=== PATIENT | male | born 1945 | race Hispanic/Latino ===

== ENCOUNTER 2017-12-23 04:42 | Inpatient (IN) | payer MEDICARE, MEDICAID ==
[2017-12-23 05:16] LABS: INR-International Normal Ratio 1.1; PTT 27.6 SEC (22.9-36.1); Prothrombin Time 13.8 SEC (12.0-14.7)
[2017-12-23 05:19] LABS: #Lymphocytes 0.7 thou/uL (1.20-3.40); #Monocytes 0.6 thou/uL (0.11-0.59); #Neutrophils 12.3 thou/uL (1.40-6.50); %Basophils 0.2 % (0.0-1.0); %Eosinophils 0.2 % (0.0-10.0); %Lymphocytes 5.4 % (21.0-51.0); %Monocytes 4.3 % (0.0-10.0); %Neutrophils 89.9 % (42.0-75.0); Hemoglobin 15.6 g/dL (14.0-18.0); Mean Corpuscular Hemoglobin 29.7 pg (27.0-31.0); Mean Corpuscular Volume 89.9 fL (78.0-98.0); Mean Platelet Volume 9.1 fL (7.4-10.4); Platelet Count 292 thou/uL (130-400); RBC Distribution Width 11.9 % (11.5-14.5); Red Blood Cell (RBC) Count 5.25 mill/uL (4.70-6.10); White Blood Cell (WBC) Count 13.7 thou/uL (4.8-10.8)
[2017-12-23 05:26] LABS: ALT (SGPT) 19 U/L (8-55); AST (SGOT) 19 U/L (5-34); Albumin 4.5 g/dL (3.4-4.8); Alkaline Phosphatase 85 U/L (40-150); Anion Gap 19 mmol/L (10-20); BUN (Urea Nitrogen) 12 mg/dL (8.4-25.7); Bilirubin, Total 0.7 mg/dL (0.2-1.2); Calc. Creatinine Clearance 0 mL/min (70-130); Calcium 10.1 mg/dL (7.8-10.44); Carbon Dioxide 21 mmol/L (23-31); Chloride 96 mmol/L (98-107); Estimated GFR-MDRD 58; Globulin 3.8 g/dL (2.4-3.5); Glucose 361 mg/dL (83-110); Potassium 4.4 mmol/L (3.5-5.1); Protein, Total 8.3 g/dL (5.8-8.1); Sodium 132 mmol/L (136-145)
[2017-12-23 05:28] LABS: CKMB 1.7 ng/mL (0-6.6); Troponin I Less than 0.010 ng/mL (< 0.028)
[2017-12-23 05:32] LABS: Bilirubin Negative (Negative); Blood, Urine Small (Negative); Clarity CLEAR (Clear); Glucose, Urine (Dipstick) >=1000 mg/dL (Negative); Leukocyte Negative (Negative); Nitrite Negative (Negative); Protein, Urine (Dipstick) 100 mg/dL (Neg-Trace); Specific Gravity, Urine 1.037 (1.002-1.036); Urobilinogen 0.2 mg/dL (0.2-1.0); pH, Urine 5.5 (5.0-9.0)
[2017-12-23 05:34] LABS: Bacteria/HPF None Seen HPF (None Seen); Hyaline Casts/LPF 0-3 HYALINE CAST LPF (0-3 Hyaline); RBC/HPF 0-3 HPF (0-3); Squamous Epithelial None Seen HPF (0-3); WBC/HPF None Seen HPF (0-3)
[2017-12-23 05:44] LABS: Acetaminophen Less than 6.0 mcg/mL (10.0-30.0); Alcohol Less than 10 mg/dL (Less than 10); Salicylate Less than 8.0 mg/dL (15.0-30.0)
[2017-12-23 06:00] LABS: Amphetamine Not Detected (NotDetected); Barbiturates Screen Not Detected (NotDetected); Benzodiazepine Screen Not Detected (NotDetected); Cocaine Metabolite Screen Not Detected (NotDetected); Medtox Control Line Valid? VALID (VALID); Medtox Reader # READER 4; Methadone Not Detected (NotDetected); Methamphetamine Not Detected (NotDetected); Opiate Screen Not Detected (NotDetected); Oxycodone Screen Not Detected (NotDetected); Phencyclidine (PCP) Not Detected (NotDetected); THC/Cannabinoid Screen Not Detected (NotDetected); Tricyclic Screen Not Detected (NotDetected)
--- NOTE | 2017-12-23 07:37 | RAD ---
CHEST 1 VIEW: HISTORY: Dyspnea. Altered mental status. FINDINGS: No comparison. Cardiac silhouette is magnified and upper limits of normal in size. Pulmonary vascul ature also upper limits of normal. Mediastinum is midline with aortic calcification. NO lobar conso lidation or evidence of pneumothorax. IMPRESSION: 1. Borderline cardiomegaly and pulmonary vascular congestion. No florid edema. 2. Atherosclerosis. POS: [facility]
--- NOTE | 2017-12-23 08:21 | CT ---
PRELIMINARY REPORT/[facility]/EMERGENTY AFTER-HOURS PROCEDURE Addendum created by Evelio Winters MD on 12/23/2017 6:25 AM Central Time ([place] & [place]) THIS REPORT CONTAINS FINDINGS THAT MAY BE CRITICAL TO PATIENT CARE. The findings were verbally commun icated via telephone conference with JIM CHOW at 6:25 AM CDT on 12/23/2017. The findings were acknowledged and understood. Initial Report created on 12/23/2017 6:23 AM Central Time ([place] & [place]) CT Head Without Intravenous Contrast EXAM DATE/TIME: 12/23/2017 5:02 AM CLINICAL HISTORY: 72 years male; Injury or trauma; Fall; Initial encounter; Abrasion; Not specified; Patient HX: No pre vious exams; Er 3; M72 presented to ed by ems after pushing his medical alarm after a fall. Pt report s he had fallen 20 times because he was travelling to his living room to get his phone. 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 Ems reports pt does not remember how he fell o r what happened. Ems reports patient has been delirius since they arrived on scene. Ems reports pt HX of dm and l sided deficits with patient's l arm with a l sided facial droop. Pt denies ETOH or narcotics. Unknown last scene normal. ; Additional info: *pt uncooperatove for exam TECHNIQUE: Axial computed tomography images of the head/brain without intravenous contrast. COMPARISON: No relevant prior studies available. FINDINGS: Artifacts: Motion artifact. Brain: Nonhemorrhagic right parietal lobe infarction. Chronic periventricular white matter small vess el ischemic change. No acute intracranial hemorrhage. Ventricles: Unremarkable. No ventriculomegaly. Bones/joints: Unremarkable. No acute fracture. Soft tissues: Unremarkable. Sinuses: Unremarkable as visualized. No acute sinusitis. Mastoid air cells: Unremarkable as visualized. No mastoid effusion. IMPRESSION: Nonhemorrhagic right parietal lobe infarction. Thank you for allowing us to participate in the care of your patient. Dictated and Authenticated by: Evelio Winters MD 12/23/2017 6:23 AM Central Time ([place] & [place]) FINAL REPORT CT HEAD NONCONTRAST: DATE: 12/23/2017. TIME: Performed on an emergency basis at 0505 hours. HISTORY: Head injury. FINDINGS: No comparison. Agree with the preliminary report by Dr. Winters from [facility]. Encephaloma lacia at the right parietal lobe is consistent with an area of old infarct. No acute intracranial ab normalities or acute traumatic process are demonstrated. POS: [facility]
[2017-12-23 08:59] LABS: Troponin I Less than 0.010 ng/mL (< 0.028)
[2017-12-23 11:37] LABS: Troponin I Less than 0.010 ng/mL (< 0.028)
[2017-12-23] MEDS ORDERED: Dextrose 50% Abboject 50 ML SYRINGE SLOW IVP PRN (13:15)
[2017-12-23] MEDS ORDERED: HumaLOG 300 UNITS/3 ML VIAL SC PRN (13:15)
[2017-12-23] MEDS ORDERED: Dextrose 5% in Water 1,000 ML IV PRN (13:15)
[2017-12-23] MEDS ORDERED: Guaifenesin DM 100-10/5 ML UDCUP PO PRN (13:15)
[2017-12-23 14:39] LABS: Syphilis Antibody Nonreactive (Nonreactive); Syphilis Antibody Index 0.07 S/CO (<1.00 Non-Reactive)
[2017-12-23 14:56] VITALS: BMI 23.6
[2017-12-23] MEDS: Sodium Chloride 0.9% 1,000 ML IV SCH (16:04)
[2017-12-23] MEDS: Acetaminophen 325 MG TAB PO PRN ×2 (16:08→20:57)
[2017-12-23] MEDS: Benzonatate 100 MG CAP PO SCH ×2 (16:08→20:55)
[2017-12-23] MEDS: Ondansetron HCl/PF 4 MG/2 ML Vial IVP PRN (17:18)
[2017-12-23] MEDS: Cefepime 1 GM in Sodium Chloride 0.9% 100 ML IVPB SCH (17:18)
[2017-12-23] MEDS: Atorvastatin Calcium 40 MG TAB PO SCH (20:55)
[2017-12-23] MEDS: guaiFENesin ER 600 MG TAB PO SCH (20:56)
[2017-12-23] MEDS: Insulin Glargine 10 UNITS in Pre-Filled Syringe 1 EACH SC SCH (20:56)
--- NOTE | 2017-12-23 21:30 | HP ---
DATE OF ADMISSION: 12/23/2017 REASON FOR ADMISSION: Acute cerebrovascular accident, acute chronic obstructive pulmonary disease ex acerbation, suspected congestive heart failure exacerbation, new onset diabetes which is uncontrolled , dehydration, acute encephalopathy. HISTORY OF PRESENT ILLNESS: Please note, the patient is not a very good historian. He is a bit grog gy and responds minimally. He states he fell down 2 weeks back and has been feeling sick from then o n. He also mentions that he has had sore throat and wants something to calm his throat. The patient was apparently brought by EMS to ED after he pushed his medical alarm after he fell at home. He sta jennifer he has fallen nearly 20 times at home. He was noted to have left-sided deficits with facial droo p. The patient has had a CT scan done in the ER, which shows right parietal lobe infarct, which like ly is old. PAST MEDICAL AND SURGICAL HISTORY: History of left wrist surgery done. He has GERD. He denies any other medical problem as such. CURRENT MEDICATIONS: None. ALLERGIES: No known drug allergies. PERSONAL HISTORY: Quit smoking 8 months back prior to which he was smoking 2 packs per day. Does no t abuse alcohol or drugs. He lives alone and is retired. FAMILY HISTORY: Mother in her 80s. Father at the age of 75 years and has had history of d iabetes and heart attack. CODE STATUS: Full. Power of energy attorney is his son, Mr. Stanley. REVIEW OF SYSTEMS: The following complete review of systems was negative, unless otherwise mentioned in the HPI or below: Constitutional: Weight loss or gain, ability to conduct usual activities. Sk in: Rash, itching. Eyes: Double vision, pain. ENT/Mouth: Nose bleeding, neck stiffness, pain, te nderness. Cardiovascular: Palpitations, dyspnea on exertion, orthopnea. Respiratory: Shortness of breath, wheezing, cough, hemoptysis, fever or night sweats. Gastrointestinal: Poor appetite, abdom inal pain, heartburn, nausea, vomiting, constipation, or diarrhea. Genitourinary: Urgency, frequenc y, dysuria, nocturia. Musculoskeletal: Pain, swelling. Neurologic/Psychiatric: Anxiety, depressio n. Allergy/Immunologic: Skin rash, bleeding tendency. PHYSICAL EXAMINATION: VITAL SIGNS: Blood pressure 146/74, pulse 70 per minute, respiratory rate 18 per minute, temperature 99 degrees Fahrenheit, saturating 93% on 2 liters nasal cannula. NECK: Supple. No elevated JVD. HEENT: Extraocular muscles intact. Pupils reacting to light. Oral cavity, mucous membranes are dry . No exudates. There is congestion in the posterior pharynx. No obvious exudates seen. CARDIOVASCULAR: S1, S2 heard. Regular rhythm. RESPIRATORY: Air entry 1+ bilateral. Scattered rhonchi plus bilateral. Wheezes plus bilaterally. ABDOMEN: Soft. Bowel sounds heard. No tenderness, rigidity or guarding. EXTREMITIES: No peripheral edema or calf tenderness. VASCULAR SYSTEM: Peripheral pulses 1+ bilateral. No ischemic ulcerations or gangrene. CENTRAL NERVOUS SYSTEM: Cranial nerves are grossly intact. The patient has very few teeth left. Mo tor system, strength is 3-4/5 in left upper and lower extremities when compared to right side. Refle xes are 2+ bilateral. Babinski is downgoing. Cerebellar signs cannot be tested as the patient is no t very cooperative. Gait was not tested. PSYCHIATRIC: No obvious hallucinations or delusions. LABORATORY AND X-RAY FINDINGS: White count of 13, H and H 15 and 47, platelet count 292,000 with 89% neutrophils, MCV is 89. PT, INR and PTT within normal limits. Serum bicarbonate 21, BUN 12, creati nine 1.2, serum glucose 361. Hemoglobin A1c 12. Troponin x3 is negative. CK-MB 1.7. Albumin is 4. 5. UA shows more than 1000 mg per deciliter of glucose, has 80 mEq of ketones. Urine drug screen an d serum drug screens are negative. Chest x-ray done shows pulmonary vascular congestion, underlying infiltrate cannot be excluded. CT brain shows nonhemorrhagic CVA in the right parietal area. There is no acute traumatic process or acute intracranial abnormalities noted. CLINICAL IMPRESSION AND PLAN: The patient will be admitted to stroke unit for left hemiparesis with likely acute cerebrovascular accident. I did discuss with his son, Mr. Stanley on the phone and he men tions that his father was not weak on any side, but he has not seen him in almost 4-5 months now. We will obtain MRI without contrast. He will be on aspirin, Lipitor for the same. The patient also ap pears to have acute chronic obstructive pulmonary disease exacerbation with underlying pneumonia susp ected and a white count of 13 with left shift. He also has moderate dehydration. We will place him on gentle IV hydration. Echo with 2D Doppler will be obtained to rule out congestive heart failure w ith elevated BNP. He will be on cefepime, Levaquin, IV steroids and nebulizers. He will be placed o n Lantus 10 units subcu twice daily for now and we will slowly titrate oral medications once he is mo re awake. TSH, throat culture, blood and urine cultures and lipid profile will be obtained. Stroke evidence based protocol will be followed with Speech, OT and Neurology consultations as well.
--- NOTE | 2017-12-23 21:45 | CON ---
DATE OF CONSULTATION: 12/23/2017 CHIEF COMPLAINT: Acute stroke. HISTORY OF PRESENT ILLNESS: The patient reports he was last normal on . He keeps falling as leep during my visit, but he reports he was doing okay on , but since Monday, he has bilatera l leg weakness. He felt wobbly. He could not walk. It took him a while and he finally walk to his phone. He was searching for his phone and he fallen at least 20 times and called 911 and came to the hospital. He does not remember many of the events. EMS reports the patient was found to be delirio us and has history of diabetes and he had left-sided deficits. We do not know exactly when he was no rmal prior to the EMS receiving his call. He takes baby aspirin on a daily basis. PAST MEDICAL HISTORY: Hypertension, diabetes, hypercholesterolemia. PAST SURGICAL HISTORY: Right wrist surgery. SOCIAL HISTORY: Does not drink alcohol, no use of any drugs. Used to smoke in the past. ALLERGIES: No known drug allergies. CURRENT MEDICATIONS: Other than aspirin not known. REVIEW OF SYSTEMS: Unreliable, patient does not wake up enough to give a reliable history even. LABORATORY DATA: White count 13.7, platelets 292, hemoglobin 15.6, hematocrit 47.2. Chemistry: Sod ium 132, potassium 4.4, bicarbonate is 21, BUN is 12, creatinine 1.2, glucose 361. TSH 0.30, protein 8.3, globulin 3.8 and toxicology screen is negative for any cannabis or any other chemicals. CT of the head was done and the patient does have encephalomalacia of the right parietal lobe consistent wi th an area of the old infarct, no acute infarct was ordered and was not found. PHYSICAL EXAMINATION: VITAL SIGNS: Temperature 99.4, respiratory rate 16, pulse 92, O2 sats 94, blood pressure 151/68. GENERAL APPEARANCE: Well-built, well-nourished man. CHEST: Clear vesicular breathing. CARDIOVASCULAR: S1, S2 heard, no murmurs. ABDOMEN: Soft, nontender, no organomegaly noted. NEUROLOGICAL: Higher intellectual functions. He is quite sleepy and wakes up intermittently, can fo llow simple commands. Cranial nerves: Normal extraocular movements. Pupils are reactive to light b ilaterally. Tongue midline. Mild left facial asymmetry noted. Motor: Bulk normal, tone normal, st rength 5/5 on the right side and left upper and lower extremities. Left upper extremity 4+/5, left l ower 4/5 and he tends to cross his legs when we are doing muscle testing, generally seems to be intac t and I tried to test muscle groups including iliopsoas, hamstrings, quadriceps, ankle dorsiflexion, plantar flexion, deltoid, biceps, triceps, wrist extension and flexion, finger extension and flexion. He falls asleep intermittently. Deep tendon reflexes absent. Sensory difficult to assess. Cerebe llar also difficult to assess due to his alertness level. IMPRESSION: Patient is a 72-year-old man who is diabetic and hypertensive, has multiple medical prob lems. He has come in with left-sided weakness and he does have a right parietal stroke which is rath er old. With encephalomalacia he might have had preexisting left-sided weakness, which has worsened. It is difficult to tell if this is an acute event and it is unclear when he was last normal and he is not a TPA candidate due to his current medical history and unclear etiology of his weakness. RECOMMENDATIONS: I would suggest MRI of the brain to understand whether he had any acute stroke. Ca rotid Dopplers and a hemoglobin A1c and B12, folate and as well and echocardiogram for stroke workup. Please monitor his blood glucose levels as well as blood pressure to make sure it is appropriately treated and I will check his MRI as well and I will follow the patient again with you. Please call m e if there is any sudden change in his neurological status.
[2017-12-24] MEDS: Sodium Chloride 0.9% 1,000 ML IV SCH ×2 (03:51→18:05)
[2017-12-24] MEDS: Cefepime 1 GM in Sodium Chloride 0.9% 100 ML IVPB SCH ×2 (03:52→17:58)
[2017-12-24] MEDS: Ondansetron HCl/PF 4 MG/2 ML Vial IVP PRN ×2 (03:52→16:05)
[2017-12-24 04:55] LABS: #Lymphocytes 0.9 thou/uL (1.20-3.40); #Monocytes 0.2 thou/uL (0.11-0.59); #Neutrophils 11.3 thou/uL (1.40-6.50); %Basophils 0.3 % (0.0-1.0); %Eosinophils 0.2 % (0.0-10.0); %Lymphocytes 7.5 % (21.0-51.0); %Monocytes 1.4 % (0.0-10.0); %Neutrophils 90.7 % (42.0-75.0); Hemoglobin 13.9 g/dL (14.0-18.0); Mean Corpuscular HGB CONC 33.4 g/dL (32.0-36.0); Mean Corpuscular Hemoglobin 30.2 pg (27.0-31.0); Mean Corpuscular Volume 90.4 fL (78.0-98.0); Mean Platelet Volume 8.6 fL (7.4-10.4); Platelet Count 258 thou/uL (130-400); RBC Distribution Width 11.7 % (11.5-14.5); White Blood Cell (WBC) Count 12.4 thou/uL (4.8-10.8)
[2017-12-24 05:08] LABS: Anion Gap 16 mmol/L (10-20); BUN (Urea Nitrogen) 19 mg/dL (8.4-25.7); Calc. Creatinine Clearance 61 mL/min (70-130); Calcium 8.7 mg/dL (7.8-10.44); Carbon Dioxide 19 mmol/L (23-31); Cardiac Risk 4.3 (Less than 4.5); Chloride 100 mmol/L (98-107); Cholesterol 124 mg/dl (< 200 Desired); Estimated GFR-MDRD 67; Glucose 281 mg/dL (83-110); HDL Cholesterol 29 mg/dL (>60 Neg Risk); LDL Cholesterol, Calculated 79 mg/dL; Potassium 4.2 mmol/L (3.5-5.1); Sodium 131 mmol/L (136-145); Triglycerides 80 mg/dL (Less than 150)
[2017-12-24] MEDS: HumaLOG 300 UNITS/3 ML VIAL SC PRN ×3 (06:25→17:59)
[2017-12-24] MEDS: guaiFENesin ER 600 MG TAB PO SCH ×2 (08:42→21:00)
[2017-12-24] MEDS: Aspirin 325 mg Enteric Coated Tablet PO SCH (08:42)
[2017-12-24] MEDS: Insulin Glargine 10 UNITS in Pre-Filled Syringe 1 EACH SC SCH ×2 (08:42→21:00)
[2017-12-24] MEDS: Benzonatate 100 MG CAP PO SCH ×3 (08:42→20:59)
[2017-12-24] MEDS: Enoxaparin Sodium 40 MG/0.4 ML SYRINGE SC SCH (08:42)
--- NOTE | 2017-12-24 10:26 | PDOC.PN ---
- Subjective Encounter Start Date: 12/24/17 Encounter Start Time: 09:15 Subjective: more awake, is sitting in chair -: responds well to verbal questions -: no sob - Objective Resuscitation Status: Resuscitation Status FULL:Full Resuscitation MAR Reviewed: Yes Vital Signs & Weight: Vital Signs (12 hours) Temp Pulse Resp BP Pulse Ox 12/24/17 08:00 99.3 F 96 18 121/56 L 94 L 12/24/17 06:53 85 20 99 12/24/17 04:00 98.4 F 85 18 131/83 93 L 12/24/17 00:00 97.8 F 92 18 183/81 H 98 12/23/17 23:17 94 L Weight Weight 155 lb 5 oz I&O: 12/23/17 12/24/17 12/25/17 06:59 06:59 06:59 Intake Total 1700 Balance 1700 Result Diagrams: 12/24/17 04:28 12/24/17 04:28 Additional Labs: Accuchecks 12/24/17 12/23/17 06:26 20:48 POC Glucose 265 H 293 H Phys Exam - Physical Examination HEENT: PERRLA, moist MMs Neck: no JVD, supple Respiratory: no wheezing, no rales rhonchi++ Cardiovascular: RRR, no significant murmur Gastrointestinal: soft, non-tender, positive bowel sounds Musculoskeletal: no edema, pulses present Neurological: moves all 4 limbs left hemiparesis strength 4/5 Psychiatric: normal affect, A&O x 3 Dx/Plan (1) Acute CVA (cerebrovascular accident) Code(s): I63.9 - CEREBRAL INFARCTION, UNSPECIFIED Status: Acute Comment: with left hemiparesis (2) COPD exacerbation Code(s): J44.1 - CHRONIC OBSTRUCTIVE PULMONARY DISEASE W (ACUTE) EXACERBATION Status: Acute (3) Acute exacerbation of CHF (congestive heart failure) Code(s): I50.9 - HEART FAILURE, UNSPECIFIED Status: Acute Qualifiers: Heart failure type: unspecified Qualified Code(s): I50.9 - Heart failure, unspecified (4) DM type 2 (diabetes mellitus, type 2) Status: Acute Qualifiers: Diabetes mellitus nursing home insulin use: without senior category manager use Diabetes mellitus complication status: with unspecified complications Qualified Code(s) : E11.8 - Type 2 diabetes mellitus with unspecified complications (5) Sepsis Code(s): A41.9 - SEPSIS, UNSPECIFIED ORGANISM Status: Acute Qualifiers: Sepsis type: sepsis due to unspecified organism Qualified Code(s): A41.9 - Sepsis, unspecified organism (6) Physical deconditioning Code(s): R53.81 - OTHER MALAISE Status: Acute - Plan MRI, echo is pending -: on levaquin, cefepime, steroids and neb -: PT/OT to mobilize as tolerated -: new onset dm, is on lantus, will add oral meds when w/u is complete -: hemostable * . Review of Systems - Medications/Allergies Allergies/Adverse Reactions: Allergies Allergy/AdvReac Type Severity Reaction Status Date / Time No Known Allergies Allergy Unverified 12/23/17 15:06 Medications: Current Medications Acetaminophen (Tylenol) 650 mg PO Q4H PRN PRN Reason: Headache/Fever/Mild Pain (1-3) Last Admin: 12/23/17 20:57 Dose: 650 mg Albuterol/Ipratropium (Duoneb) 3 ml NEB [id number] [facility] Last Admin: 12/24/17 06:53 Dose: 3 ml Aspirin (Ecotrin) 325 mg PO DAILY [facility] Last Admin: 12/24/17 08:42 Dose: 325 mg Atorvastatin Calcium (Lipitor) 40 mg PO HS [facility] Last Admin: 12/23/17 20:55 Dose: 40 mg Benzonatate (Tessalon) 100 mg PO TID [facility] Last Admin: 12/24/17 08:42 Dose: 100 mg Dextrose/Water (Dextrose 50%) 25 gm SLOW IVP PRN PRN PRN Reason: Hypoglycemia Enoxaparin Sodium (Lovenox) 40 mg SC 0900 [facility] Last Admin: 12/24/17 08:42 Dose: 40 mg Glucagon (Glucagon) 1 mg IM PRN PRN PRN Reason: Hypoglycemia Guaifenesin (Mucinex) 600 mg PO Q12HR [facility] Last Admin: 12/24/17 08:42 Dose: 600 mg Guaifenesin/Dextromethorphan (Robitussin Dm) 15 ml PO Q4H PRN PRN Reason: Cough Cefepime HCl 1 gm/ Sodium (Chloride) 100 mls @ 200 mls/hr IVPB 0400,1600 [facility] Last Admin: 12/24/17 03:52 Dose: 100 mls Dextrose/Water (D5w) 1,000 mls @ 0 mls/hr IV .Q0M PRN PRN Reason: Hypoglycemia Insulin Glargine 10 units/ (Miscellaneous Medication) 0.1 mls @ 0 mls/hr SC BID [facility] Last Admin: 12/24/17 08:42 Dose: 0.1 mls Sodium Chloride (Normal Saline 0.9%) 1,000 mls @ 100 mls/hr IV .Q10H [facility] Stop: 12/24/17 19:14 Last Admin: 12/24/17 03:51 Dose: 1,000 mls Levofloxacin 500 mg/ Device 100 mls @ 100 mls/hr IVPB Q24HR [facility] Last Admin: 12/23/17 16:09 Dose: 100 mls Insulin Human Lispro (Humalog) 0 units SC .MODERATE SLIDING SC PRN PRN Reason: Moderate Correctional Scale Last Admin: 12/24/17 06:25 Dose: 6 unit Insulin Human Lispro (Humalog) 0 units SC .BEDTIME SLIDING SC PRN PRN Reason: Bedtime Correctional Scale Last Admin: 12/23/17 23:00 Dose: 3 unit Ondansetron HCl (Zofran) 4 mg IVP Q6H PRN PRN Reason: Nausea/Vomiting Last Admin: 12/24/17 03:52 Dose: 4 mg Prednisone (Prednisone) 10 mg PO QAM-WM [facility] Sodium Chloride (Flush - Normal Saline) 10 ml IVF PRN PRN PRN Reason: Saline Flush
--- NOTE | 2017-12-24 11:32 | MRI ---
MRI OF BRAIN WITH AND IWHTOUT GADOLINIUM CONTRAST: HISTORY: CVA. COMPARISON: CT exam from 12/23/2017. FINDINGS: A gyriform multifocal area of restricted diffusion involves the right posterior frontal and parietal context and area of abnormality on recent CT scan. Small linear foci of increased T1 signal near the champion-white junction in the area of greatest abnormality shows blooming artifact on the gradient echo images and is consistent with a small amount of blood product. No abnormal areas of contrast enhanc ement. There are multiple additional smaller foci of restricted diffusion scattered throughout the periphery of the right frontal, parietal, temporal, and occipital lobes. No significant abnormalities on the left. Chronic ischemic small-vessel disease throughout the periventricular white matter. IMPRESSION: In addition to the larger parietal area of acute infarct, there are numerous tiny foci of acute vascu lar insult scattered throughout the right cerebral hemisphere with the appearance of a recent showeri ng phenomenon involving all 3 major branches of the right cerebral arteries. POS: [facility]
[2017-12-24] MEDS: Acetaminophen 325 MG TAB PO PRN (11:53)
--- NOTE | 2017-12-24 13:05 | PRG ---
DATE OF SERVICE: 12/24/2017 CHIEF COMPLAINT: Acute stroke. INTERVAL HISTORY: The patient has been more awake since yesterday and is sitting up in bed and eatin g lunch at this time. He does not report any new symptoms. He is going through testing at this poin t to determine the cause for his ischemic event. LABORATORY RESULTS: White count 12.4, hemoglobin 13.9, hematocrit 41.5, platelet count 258. Candy Counter Clerk ry: Sodium 131, potassium 4.2, chloride 100, bicarbonate 19, BUN 19, creatinine 1.08, glucose 281 an d his MRI report shows in addition to the large parietal area of acute infarct in the right posterior frontal and parietal area. There are numerous tiny foci of acute vascular insult scattered througho ut the right cerebral hemisphere with the appearance of a recent showering phenomena involving all 3 major branches of the right cerebral arteries. CLINICAL EXAMINATION: VITAL SIGNS: Blood pressure is 148/71, temperature 98.7, pulse is 88, respiratory rate 18. GENERAL: Thin built, well-nourished man. CHEST: Clear. NEUROLOGIC: Higher intellectual functions. Oriented to time, place and person and cranial nerves, l eft facial asymmetry. Tongue midline. Motor examination: Bulk normal, tone normal. He has mild we akness in the left upper extremity at 4+/5, left lower extremity weakness is 4/5, right side is guerrero l. IMPRESSION: The patient is a 72-year-old man with risk factors of hypertension, diabetes, hyperchole sterolemia, and he was last normal on and did not come to the hospital until Monday at [facility] time he was found to have had acute stroke within the right frontoparietal area with left-sided we akness. His examination shows some improvement in the left upper extremity weakness and left lower e xtremity remains weak and he is having some difficulties processing information. His MRI brain shows multiple infarcts in predominantly the right parietal infarct; however, based on the MRI findings pruitt spicion is high for carotid occlusion or major cardiac event. RECOMMENDATIONS: Continue aspirin for now. I will request a CT angiogram of the head and neck and w e are also waiting on echocardiogram. Please call Neurology if you have any further questions about the CTA report. I will not be here tomorrow.
[2017-12-24] MEDS ORDERED: ISOVUE-370 76%-LOCM 1 ML ONE (13:39)
--- NOTE | 2017-12-24 14:13 | CT ---
CT ARTERIOGRAM NECK WITH IV CONTRAST AND 3D MIP IMAGING CT ARTERIOGRAM HEAD WITH IV CONTRAST AND 3D MIP IMAGING CT BRAIN WITH AND WITHOUT IV CONTRAST: HISTORY: CVA. Vascular disease. COMPARISON: 12/23/2017. FINDINGS: Developing cytotoxic edema associated with a right posterior frontal/parietal infarct is again demons trated. No acute intracranial hemorrhage or infarcts are apparent on the CT. No abnormal areas of e nhancement of the brain after IV contrast administration. Normal branching of the great vessels at the aortic arch with scattered arterial calcification. Good flow into each internal carotid and vertebral system. Emphysematous changes of the lung apices are apparent. There is prominent calcification and noncalcified plaque at the right carotid bifurcation with foal s tenosis up to greater than 90% over a length of 1.5 cm within the proximal ICA. Good flow throughout the remainder of the ICA on the right. Projecting superiorly and anteriorly from the right internal carotid terminus is a peripherally calcified aneurysm measuring up to 1.4 cm length x 1.1 cm width. On the left, prominent plaque and calcification at the carotid bifurcation are present with a focal a yoan of stenosis estimated at 70%. Good flow into the remainder of the internal carotid artery. [place] is intact. Good flow into each middle cerebral, anterior cerebral, and posterior ce rebral system. IMPRESSION: 1. Very high-grade stenosis right internal carotid artery, greater than 99%. Moderate to high-grade stenosis of the left internal carotid artery estimated at 70%. 2. 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 POS: [facility]
[2017-12-24 15:52] LABS: ANA Symphony (Qualitative) Negative (Negative); dsDNA IgG Antibody Less than 0.5 IU/mL (<10 Negative)
[2017-12-24] MEDS: Atorvastatin Calcium 40 MG TAB PO SCH (21:00)
[2017-12-25] MEDS: Cefepime 1 GM in Sodium Chloride 0.9% 100 ML IVPB SCH (03:34)
[2017-12-25 05:23] LABS: #Lymphocytes 1.9 thou/uL (1.20-3.40); #Monocytes 1.3 thou/uL (0.11-0.59); #Neutrophils 13.6 thou/uL (1.40-6.50); %Basophils 0.1 % (0.0-1.0); %Eosinophils 0.2 % (0.0-10.0); %Lymphocytes 11.4 % (21.0-51.0); %Monocytes 7.5 % (0.0-10.0); %Neutrophils 80.8 % (42.0-75.0); Mean Corpuscular HGB CONC 33.9 g/dL (32.0-36.0); Mean Corpuscular Hemoglobin 30.7 pg (27.0-31.0); Mean Corpuscular Volume 90.7 fL (78.0-98.0); Mean Platelet Volume 9.1 fL (7.4-10.4); Platelet Count 273 thou/uL (130-400); RBC Distribution Width 11.9 % (11.5-14.5); Red Blood Cell (RBC) Count 4.55 mill/uL (4.70-6.10); White Blood Cell (WBC) Count 16.8 thou/uL (4.8-10.8)
[2017-12-25 05:34] LABS: Anion Gap 14 mmol/L (10-20); BUN (Urea Nitrogen) 14 mg/dL (8.4-25.7); Calc. Creatinine Clearance 85 mL/min (70-130); Calcium 8.5 mg/dL (7.8-10.44); Carbon Dioxide 16 mmol/L (23-31); Chloride 103 mmol/L (98-107); Estimated GFR-MDRD Greater than 90; Glucose 152 mg/dL (83-110); Sodium 129 mmol/L (136-145)
[2017-12-25 05:52] LABS: Thyroid Stimulating Hormone 0.7545 uIU/mL (0.35-4.94)
[2017-12-25] MEDS: Enoxaparin Sodium 40 MG/0.4 ML SYRINGE SC SCH (08:49)
[2017-12-25] MEDS: predniSONE 5 MG TAB PO SCH (08:55)
[2017-12-25] MEDS: Insulin Glargine 10 UNITS in Pre-Filled Syringe 1 EACH SC SCH ×2 (08:55→22:02)
[2017-12-25] MEDS: guaiFENesin ER 600 MG TAB PO SCH ×2 (08:55→22:01)
[2017-12-25] MEDS: Aspirin 325 mg Enteric Coated Tablet PO SCH (08:55)
[2017-12-25] MEDS: Benzonatate 100 MG CAP PO SCH ×3 (08:55→22:01)
--- NOTE | 2017-12-25 11:42 | PDOC.PN ---
- Subjective Encounter Start Date: 12/25/17 Encounter Start Time: 10:15 Subjective: awake and oriented well -: still has left sided weakness, no trouble swallowing -: breathing better now, has back pain/lower rib cage area - Objective Resuscitation Status: Resuscitation Status FULL:Full Resuscitation MAR Reviewed: Yes Vital Signs & Weight: Vital Signs (12 hours) Temp Pulse Resp BP Pulse Ox 12/25/17 08:55 94 L 12/25/17 07:48 98.5 F 98 20 141/66 H 94 L 12/25/17 06:42 86 12 12/25/17 04:00 98 F 83 14 141/80 H 95 12/25/17 00:00 97.9 F 86 16 137/68 96 12/24/17 23:57 94 L Weight Weight 155 lb 5 oz I&O: 12/24/17 12/25/17 12/26/17 06:59 06:59 06:59 Intake Total 3206 569 8727 Output Total 460 Balance 1700 540 660 Result Diagrams: 12/25/17 04:17 12/25/17 04:17 Additional Labs: Accuchecks 12/25/17 12/25/17 12/24/17 10:46 06:45 20:15 POC Glucose 201 H 163 H 213 H 12/24/17 12/24/17 16:58 11:38 POC Glucose 388 H 282 H Phys Exam - Physical Examination HEENT: PERRLA, moist MMs Neck: no JVD, supple Respiratory: no wheezing rhonchi+ Cardiovascular: RRR, no significant murmur Gastrointestinal: soft, non-tender, positive bowel sounds Musculoskeletal: no edema, pulses present Neurological: moves all 4 limbs left extre strength is 4/5 Psychiatric: normal affect, A&O x 3 Dx/Plan (1) Acute CVA (cerebrovascular accident) Code(s): I63.9 - CEREBRAL INFARCTION, UNSPECIFIED Status: Acute Comment: with left hemiparesis, embolic cva in right cerebral hemisphere (2) right carotid stenosis Status: Acute (3) COPD exacerbation Code(s): J44.1 - CHRONIC OBSTRUCTIVE PULMONARY DISEASE W (ACUTE) EXACERBATION Status: Acute Comment: resolving (4) Acute exacerbation of CHF (congestive heart failure) Code(s): I50.9 - HEART FAILURE, UNSPECIFIED Status: Acute Qualifiers: Heart failure type: diastolic Qualified Code(s): I50.33 - Acute on chronic diastolic (congestive) heart failure (5) DM type 2 (diabetes mellitus, type 2) Status: Acute Qualifiers: Diabetes mellitus termite control servicer insulin use: without termite control servicer use Diabetes mellitus complication status: with unspecified complications Qualified Code(s) : E11.8 - Type 2 diabetes mellitus with unspecified complications Comment: new onset (6) Sepsis Code(s): A41.9 - SEPSIS, UNSPECIFIED ORGANISM Status: Acute Qualifiers: Sepsis type: sepsis due to unspecified organism Qualified Code(s): A41.9 - Sepsis, unspecified organism (7) Physical deconditioning Code(s): R53.81 - OTHER MALAISE Status: Acute - Plan will request CTS opinion for right carotid stenosis and left hemiparesis -: embolic cva, in sinus rhythm, likely from carotid plaque -: is on asp, lipitor, will add plavix after cts opinion -: omnicef, steroids, nebs, PT/OT to mobilize as tolerated -: add glipizide to current lantus, may add metformin in am and dc lantus * . Review of Systems - Medications/Allergies Allergies/Adverse Reactions: Allergies Allergy/AdvReac Type Severity Reaction Status Date / Time No Known Allergies Allergy Unverified 12/23/17 15:06 Medications: Current Medications Acetaminophen (Tylenol) 650 mg PO Q4H PRN PRN Reason: Headache/Fever/Mild Pain (1-3) Last Admin: 12/24/17 11:53 Dose: 650 mg Albuterol/Ipratropium (Duoneb) 3 ml NEB [id number] [facility] Last Admin: 12/25/17 06:42 Dose: 3 ml Aspirin (Ecotrin) 325 mg PO DAILY [facility] Last Admin: 12/25/17 08:55 Dose: 325 mg Atorvastatin Calcium (Lipitor) 40 mg PO HS [facility] Last Admin: 12/24/17 21:00 Dose: 40 mg Benzonatate (Tessalon) 100 mg PO TID [facility] Last Admin: 12/25/17 08:55 Dose: 100 mg Dextrose/Water (Dextrose 50%) 25 gm SLOW IVP PRN PRN PRN Reason: Hypoglycemia Enoxaparin Sodium (Lovenox) 40 mg SC 0900 [facility] Last Admin: 12/25/17 08:49 Dose: 40 mg Glucagon (Glucagon) 1 mg IM PRN PRN PRN Reason: Hypoglycemia Guaifenesin (Mucinex) 600 mg PO Q12HR [facility] Last Admin: 12/25/17 08:55 Dose: 600 mg Guaifenesin/Dextromethorphan (Robitussin Dm) 15 ml PO Q4H PRN PRN Reason: Cough Cefepime HCl 1 gm/ Sodium (Chloride) 100 mls @ 200 mls/hr IVPB 0400,1600 [facility] Last Admin: 12/25/17 03:34 Dose: 100 mls Dextrose/Water (D5w) 1,000 mls @ 0 mls/hr IV .Q0M PRN PRN Reason: Hypoglycemia Insulin Glargine 10 units/ (Miscellaneous Medication) 0.1 mls @ 0 mls/hr SC BID [facility] Last Admin: 12/25/17 08:55 Dose: 0.1 mls Levofloxacin 500 mg/ Device 100 mls @ 100 mls/hr IVPB Q24HR [facility] Last Admin: 12/24/17 15:24 Dose: 100 mls Insulin Human Lispro (Humalog) 0 units SC .MODERATE SLIDING SC PRN PRN Reason: Moderate Correctional Scale Last Admin: 12/24/17 17:59 Dose: 10 unit Insulin Human Lispro (Humalog) 0 units SC .BEDTIME SLIDING SC PRN PRN Reason: Bedtime Correctional Scale Last Admin: 12/23/17 23:00 Dose: 3 unit Ondansetron HCl (Zofran) 4 mg IVP Q6H PRN PRN Reason: Nausea/Vomiting Last Admin: 12/24/17 16:05 Dose: 4 mg Prednisone (Prednisone) 10 mg PO QAM-WM [facility] Last Admin: 12/25/17 08:55 Dose: 10 mg Sodium Chloride (Flush - Normal Saline) 10 ml IVF PRN PRN PRN Reason: Saline Flush Last Admin: 12/24/17 18:00 Dose: 10 ml
[2017-12-25] MEDS ORDERED: Lidocaine 5% Patch TD SCH (12:00)
[2017-12-25] MEDS ORDERED: Lidocaine 5% Patch TD PRN (12:00)
--- NOTE | 2017-12-25 12:36 | CON ---
DATE OF CONSULTATION: 12/25/2017 HISTORY OF PRESENT ILLNESS: This is a 72-year-old gentleman who began falling at home about 3 days a go. He was unable to get to the phone to call for an ambulance due to his frequent falling. He was found to have an old right parietal infarct by CT scan of the brain and a brain MRI suggested some ot her small scattered acute infarctions on the right cerebral hemisphere. The patient admitted to a hi story of diabetes mellitus, although was on no medications for this. He admitted to smoking 2 packs of cigarettes a day, but stopped earlier this year. 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 MEDICATIONS: He was on no medications at home and has been placed on aspirin here. ALLERGIES: No known allergies. PAST SURGICAL HISTORY: Left wrist surgery related to an injury from glass cut while at [employer]. SOCIAL HISTORY: He lives alone. The rest of his family is in the [facility]. No family present at this time. PHYSICAL EXAMINATION: GENERAL: He is an alert, cooperative gentleman with normal speech and normal comprehension. NECK: No carotid bruits. LUNGS: Clear to auscultation. CARDIAC: Regular rate and rhythm. ABDOMEN: Soft, nontender. No aneurysm, no organomegaly. EXTREMITIES: He has palpable radial and posterior tibial pulses bilaterally with no peripheral edema and has normal strength in upper and lower extremities. After review of his CT angiogram he does have a high-grade critical stenosis of his right carotid art key. He is approaching 48 hours since his admission and feel that intervention is appropriate tomorrow wit h a right carotid endarterectomy planned. His son is supposed to be here sometime today and we will discuss with him when he is available.
[2017-12-25] MEDS: HumaLOG 300 UNITS/3 ML VIAL SC PRN (12:37)
[2017-12-25] MEDS: glipiZIDE 5 MG TAB PO SCH (16:32)
[2017-12-25] MEDS: Ondansetron HCl/PF 4 MG/2 ML Vial IVP PRN (22:00)
[2017-12-25] MEDS: Atorvastatin Calcium 40 MG TAB PO SCH (22:01)
[2017-12-25] MEDS: Cefdinir 300 MG CAP PO SCH (22:01)
[2017-12-26] MEDS: Lidocaine Patch Removal 1 EACH TOP SCH ×2 (00:26→22:50)
[2017-12-26 05:26] LABS: #Lymphocytes 2.4 thou/uL (1.20-3.40); #Monocytes 1.2 thou/uL (0.11-0.59); #Neutrophils 7.9 thou/uL (1.40-6.50); %Basophils 0.4 % (0.0-1.0); %Eosinophils 0.3 % (0.0-10.0); %Lymphocytes 20.5 % (21.0-51.0); %Monocytes 10.5 % (0.0-10.0); %Neutrophils 68.3 % (42.0-75.0); Mean Corpuscular HGB CONC 33.7 g/dL (32.0-36.0); Mean Corpuscular Hemoglobin 30.5 pg (27.0-31.0); Mean Corpuscular Volume 90.5 fL (78.0-98.0); Mean Platelet Volume 8.7 fL (7.4-10.4); Platelet Count 269 thou/uL (130-400); White Blood Cell (WBC) Count 11.6 thou/uL (4.8-10.8)
[2017-12-26 05:39] LABS: Anion Gap 10 mmol/L (10-20); BUN (Urea Nitrogen) 9 mg/dL (8.4-25.7); Calc. Creatinine Clearance 89 mL/min (70-130); Calcium 8.5 mg/dL (7.8-10.44); Carbon Dioxide 22 mmol/L (23-31); Chloride 102 mmol/L (98-107); Estimated GFR-MDRD Greater than 90; Glucose 122 mg/dL (83-110); Potassium 3.4 mmol/L (3.5-5.1); Sodium 131 mmol/L (136-145)
[2017-12-26] MEDS ORDERED: Protamine Sulfate 50 MG/5 ML VIAL ONE (06:41)
[2017-12-26] MEDS ORDERED: Heparin 5,000 UNITS/ML VIAL ONE ×2 (06:41→09:18)
[2017-12-26] MEDS ORDERED: Fentanyl 250 MCG/5 ML VIAL ONE (09:25)
[2017-12-26] MEDS: Aspirin 325 mg Enteric Coated Tablet PO SCH (10:58)
[2017-12-26] MEDS: predniSONE 5 MG TAB PO SCH (10:58)
[2017-12-26] MEDS: glipiZIDE 5 MG TAB PO SCH ×2 (10:58→21:29)
[2017-12-26] MEDS: Cefdinir 300 MG CAP PO SCH ×2 (10:59→22:48)
[2017-12-26] MEDS: Insulin Glargine 10 UNITS in Pre-Filled Syringe 1 EACH SC SCH ×2 (10:59→22:48)
[2017-12-26] MEDS: Enoxaparin Sodium 40 MG/0.4 ML SYRINGE SC SCH (10:59)
[2017-12-26] MEDS: Benzonatate 100 MG CAP PO SCH ×3 (10:59→22:49)
[2017-12-26] MEDS: guaiFENesin ER 600 MG TAB PO SCH ×2 (10:59→22:48)
[2017-12-26] MEDS ORDERED: Promethazine HCl 25 MG/ML VIAL SLOW IVP PRN (11:16)
[2017-12-26] MEDS ORDERED: Promethazine HCl 25 MG/ML VIAL IM PRN ×2 (11:16→16:13)
[2017-12-26] MEDS ORDERED: Ondansetron HCl/PF 4 MG/2 ML Vial IVP PRN ×2 (11:16→16:13)
[2017-12-26] MEDS ORDERED: HYDROmorphone 2 MG/ML VIAL SLOW IVP PRN (11:16)
[2017-12-26] MEDS ORDERED: PHENYLEPHRINE-NS 100 MCG/ML 10 ML SYRINGE ONE (11:41)
[2017-12-26] MEDS ORDERED: Glycopyrrolate 0.2 MG/ML 5 ML SYRINGE ONE (11:41)
[2017-12-26] MEDS ORDERED: Ondansetron HCl/PF 4 MG/2 ML Vial ONE (11:41)
[2017-12-26] MEDS ORDERED: ePHEDrine/0.9% NaCl/PF SYRINGE 50 mg/10 ml ONE (11:41)
[2017-12-26] MEDS ORDERED: Lidocaine 1% PF 5 ML VIAL ONE (11:41)
[2017-12-26] MEDS ORDERED: Labetalol HCl 100 MG/20 ML VIAL ONE (11:41)
[2017-12-26] MEDS ORDERED: Heparin 10,000 UNITS/ 10 ML VIAL ONE (11:41)
[2017-12-26] MEDS ORDERED: PROPOFOL 200 MG/20 ML VIAL ONE (11:41)
--- NOTE | 2017-12-26 13:09 | OP ---
DATE OF PROCEDURE: 12/26/2017 PREOPERATIVE DIAGNOSES: Bilateral carotid stenosis with a critical right internal carotid artery lorene nosis, intracranial aneurysm and stroke. POSTOPERATIVE DIAGNOSES: Bilateral carotid stenosis with a critical right internal carotid artery st enosis, intracranial aneurysm and stroke. PROCEDURE: Right carotid endarterectomy with bovine patch angioplasty. SURGEON: Art Dejesus M.D. ANESTHESIA: General. ESTIMATED BLOOD LOSS: 100 mL. PROCEDURE IN DETAIL: After adequate anesthesia had been obtained, the patient was placed on a should er roll and ultrasound used to identify the carotid bulb. Prepping and draping was carried out. Exc ision was performed and common internal and external carotid arteries were isolated ligating a facial vein and not identifying hypoglossal or vagus nerves. Following heparinization, clamps were applied . A 10 Amharic shunt was placed with excellent backbleeding. Endarterectomy was performed with nice tapering distally. After thorough irrigation and removing any loose debris, the carotid artery was c losed with a bovine pericardial patch and running 6-0 Prolene suture. Prior to completing the suture line, the shunt was removed, vessels back flushed and forward flushed and flow restored up the exter nal and internal carotid artery. Protamine was given to partially reverse the heparin. After obtain ing good hemostasis, the wound was irrigated, closed in layers. The patient is to be taken to the re covery room in guarded condition.
[2017-12-26] MEDS ORDERED: Acetaminophen 325 MG TAB PO PRN (16:13)
[2017-12-26] MEDS ORDERED: Phenylephrine 10 MG/NS 250 ML 250 ML IVPB PRN (16:13)
[2017-12-26] MEDS ORDERED: HYDROcodone/Acetaminophen 5/325 mg Tablet PO PRN ×2 (16:13)
[2017-12-26] MEDS ORDERED: Sodium Chloride 0.9% 1,000 ML IV SCH (16:13)
[2017-12-26] MEDS ORDERED: Morphine 2 MG/ML SYRINGE SLOW IVP PRN (16:13)
--- NOTE | 2017-12-26 17:47 | PDOC.PN ---
- Subjective Encounter Start Date: 12/26/17 Encounter Start Time: 17:46 Subjective: seen in PACU.s/p R CEA today -: denies any nausea /vomiting/pain.some post nasal drip - Objective Resuscitation Status: Resuscitation Status FULL:Full Resuscitation MAR Reviewed: Yes Vital Signs & Weight: Vital Signs (12 hours) Pulse Resp 12/26/17 07:01 84 12 Weight Weight 155 lb 5 oz I&O: 12/25/17 12/26/17 12/27/17 06:59 06:59 06:59 Intake Total 540 1120 Output Total 460 Balance 540 660 Result Diagrams: 12/26/17 04:55 12/26/17 04:55 Additional Labs: Accuchecks 12/26/17 12/26/17 12/26/17 13:41 10:17 05:49 POC Glucose 156 H 128 H 138 H 12/25/17 21:14 POC Glucose 166 H Microbiology 12/23/17 16:14 Nasopharyngeal swab Nose/Throat Culture - Final 12/23/17 05:17 Sputum Respiratory Culture - Final 12/23/17 04:55 Urine clean catch Urine Culture - Final 12/23/17 13:41 Venous blood - Left Hand Blood Culture - Preliminary NO GROWTH AT 48 HOURS 12/23/17 13:31 Venous blood - Left Arm Blood Culture - Preliminary NO GROWTH AT 48 HOURS Laboratory Tests 12/23/17 12/23/17 12/24/17 13:33 13:33 04:28 Triglycerides 80 Cholesterol 124 LDL Cholesterol, Calc 79 HDL Cholesterol 29 Free T4 Free T3 TSH 3rd Generation ANGELITA Screen Negative ANGELITA IgG Screen Negative Anti-ds DNA IgG Ab Less than 0.5 Syphilis IgG/IgM Ab Nonreactive 12/25/17 04:17 Triglycerides Cholesterol LDL Cholesterol, Calc HDL Cholesterol Free T4 1.00 Free T3 1.91 TSH 3rd Generation 0.7545 ANGELITA Screen ANGELITA IgG Screen Anti-ds DNA IgG Ab Syphilis IgG/IgM Ab Phys Exam - Physical Examination Constitutional: NAD HEENT: PERRLA, moist MMs, sclera anicteric, oral pharynx no lesions Neck: no nodes, no JVD, supple, full ROM Respiratory: no wheezing, no rales, no rhonchi, clear to auscultation bilateral Cardiovascular: RRR, no significant murmur, no rub, irregular Gastrointestinal: soft, non-tender, no distention, positive bowel sounds Musculoskeletal: no edema, pulses present Neurological: non-focal, normal sensation, moves all 4 limbs Left sided weakness has improved Psychiatric: normal affect, A&O x 3 Skin: no rash Dx/Plan (1) Acute CVA (cerebrovascular accident) Code(s): I63.9 - CEREBRAL INFARCTION, UNSPECIFIED Status: Acute Comment: with left hemiparesis, embolic cva in right cerebral hemisphere (2) Acute exacerbation of CHF (congestive heart failure) Code(s): I50.9 - HEART FAILURE, UNSPECIFIED Status: Acute Qualifiers: Heart failure type: diastolic Qualified Code(s): I50.33 - Acute on chronic diastolic (congestive) heart failure (3) COPD exacerbation Code(s): J44.1 - CHRONIC OBSTRUCTIVE PULMONARY DISEASE W (ACUTE) EXACERBATION Status: Acute Comment: resolving (4) DM type 2 (diabetes mellitus, type 2) Status: Acute Qualifiers: Diabetes mellitus skilled nursing insulin use: without skilled nursing use Diabetes mellitus complication status: with unspecified complications Qualified Code(s) : E11.8 - Type 2 diabetes mellitus with unspecified complications Comment: new onset (5) Physical deconditioning Code(s): R53.81 - OTHER MALAISE Status: Acute (6) Sepsis Code(s): A41.9 - SEPSIS, UNSPECIFIED ORGANISM Status: Acute Qualifiers: Sepsis type: sepsis due to unspecified organism Qualified Code(s): A41.9 - Sepsis, unspecified organism (7) right carotid stenosis Status: Acute - Plan PT/OT, respiratory therapy, incentive spirometry, out of bed/ambulate, DVT proph w/SCDs cont ASA,statin. will elyssa need to be started on Plavix as well -: hemodynamically stable. -: Cont PO steroids, Omnicef. add Mucinex -: am labs * . Review of Systems - Review of Systems Constitutional: weakness, malaise. negative: fever, chills, sweats, other ENT: negative: Ear Pain, Ear Discharge, Nose Pain, Nose Discharge, Nose Congestion, Mouth Pain, Mouth Swelling, Throat Pain, Throat Swelling, Other Respiratory: negative: Cough, Dry, Shortness of Breath, Hemoptysis, SOB with Excertion, Pleuritic Pain, Sputum, Wheezing Cardiovascular: negative: chest pain, palpitations, orthopnea, paroxysmal nocturnal dyspnea, edema, light headedness, other Gastrointestinal: negative: Nausea, Vomiting, Abdominal Pain, Diarrhea, Constipation, Melena, Hematochezia, Other Genitourinary: negative: Dysuria, Frequency, Incontinence, Hematuria, Retention , Other Musculoskeletal: negative: Neck Pain, Shoulder Pain, Arm Pain, Back Pain, Hand Pain, Leg Pain, Foot Pain, Other Skin: negative: Rash, Lesions, Mark, Bruising, Other Neurological: negative: Weakness, Numbness, Incoordination, Change in Speech, Confusion, Seizures, Other - Medications/Allergies Allergies/Adverse Reactions: Allergies Allergy/AdvReac Type Severity Reaction Status Date / Time No Known Allergies Allergy Unverified 12/23/17 15:06 Medications: Current Medications Acetaminophen (Tylenol) 650 mg PO Q4H PRN PRN Reason: Fever > 101 or headache Hydrocodone Bitart/Acetaminophen ([place] 5/325) 1 tab PO Q4H PRN PRN Reason: Mild Pain (1-3) Hydrocodone Bitart/Acetaminophen ([place] 5/325) 2 tab PO Q4H PRN PRN Reason: Moderate Pain (4-6) Albuterol/Ipratropium (Duoneb) 3 ml NEB [id number] [facility] Last Admin: 12/26/17 17:03 Dose: Not Given Albuterol/Ipratropium (Duoneb) 3 ml NEB [id number] PRN PRN Reason: SHORTNESS OF BREATH Aspirin (Ecotrin) 325 mg PO QAM [facility] Atorvastatin Calcium (Lipitor) 40 mg PO HS [facility] Last Admin: 12/25/17 22:01 Dose: 40 mg Benzonatate (Tessalon) 100 mg PO TID [facility] Last Admin: 12/26/17 10:59 Dose: Not Given Cefdinir (Omnicef) 300 mg PO BID [facility] Last Admin: 12/26/17 10:59 Dose: Not Given Dextrose/Water (Dextrose 50%) 25 gm SLOW IVP PRN PRN PRN Reason: Hypoglycemia Enoxaparin Sodium (Lovenox) 40 mg SC 0900 [facility] Last Admin: 12/26/17 10:59 Dose: Not Given Glipizide (Glucotrol) 5 mg PO BID-AC [facility] Last Admin: 12/26/17 10:58 Dose: Not Given Glucagon (Glucagon) 1 mg IM PRN PRN PRN Reason: Hypoglycemia Guaifenesin (Mucinex) 600 mg PO Q12HR [facility] Last Admin: 12/26/17 10:59 Dose: Not Given Guaifenesin/Dextromethorphan (Robitussin Dm) 15 ml PO Q4H PRN PRN Reason: Cough Dextrose/Water (D5w) 1,000 mls @ 0 mls/hr IV .Q0M PRN PRN Reason: Hypoglycemia Insulin Glargine 10 units/ (Miscellaneous Medication) 0.1 mls @ 0 mls/hr SC BID [facility] Last Admin: 12/26/17 10:59 Dose: Not Given Nicardipine HCl 25 mg/ Sodium (Chloride) 260 mls @ 0 mls/hr IVPB INF PRN; Protocol PRN Reason: To Keep SBP < 140 mmHG Sodium Chloride (Normal Saline 0.9%) 1,000 mls @ 50 mls/hr IV .Q20H INGRID Phenylephrine HCl (Ryan-Synephrine) 250 mls @ 0 mls/hr IVPB PRN PRN; Protocol PRN Reason: To Keep SBP > 90 mmHG Insulin Human Lispro (Humalog) 0 units SC .MODERATE SLIDING SC PRN PRN Reason: Moderate Correctional Scale Last Admin: 12/25/17 12:37 Dose: 4 unit Insulin Human Lispro (Humalog) 0 units SC .BEDTIME SLIDING SC PRN PRN Reason: Bedtime Correctional Scale Last Admin: 12/23/17 23:00 Dose: 3 unit Lidocaine (Lidoderm 5% Patch) 1 patch TD 1200 PRN PRN Reason: BACK PAIN Last Admin: 12/25/17 12:37 Dose: 1 patch Miscellaneous Medication (Lidocaine Patch Removal) 1 each TOP 2359 [facility] Last Admin: 12/26/17 00:26 Dose: Not Given Morphine Sulfate (Morphine) 2 mg SLOW IVP Q4H PRN PRN Reason: Moderate Pain (4-6) Ondansetron HCl (Zofran) 4 mg IVP Q6H PRN PRN Reason: Nausea/Vomiting Prednisone (Prednisone) 10 mg PO QAM-WM [facility] Last Admin: 12/26/17 10:58 Dose: Not Given Promethazine HCl (Phenergan) 6.25 mg IM Q4H PRN PRN Reason: Nausea/Vomiting Sodium Chloride (Flush - Normal Saline) 10 ml IVF PRN PRN PRN Reason: Saline Flush Last Admin: 12/24/17 18:00 Dose: 10 ml
[2017-12-26] MEDS: Atorvastatin Calcium 40 MG TAB PO SCH (22:48)
[2017-12-27 05:02] LABS: Anion Gap 8 mmol/L (10-20); BUN (Urea Nitrogen) 8 mg/dL (8.4-25.7); Calc. Creatinine Clearance 84 mL/min (70-130); Calcium 8.4 mg/dL (7.8-10.44); Carbon Dioxide 26 mmol/L (23-31); Chloride 102 mmol/L (98-107); Estimated GFR-MDRD Greater than 90; Glucose 88 mg/dL (83-110); Potassium 3.5 mmol/L (3.5-5.1); Sodium 132 mmol/L (136-145)
[2017-12-27] MEDS: Cefdinir 300 MG CAP PO SCH ×2 (08:57→21:09)
[2017-12-27] MEDS: glipiZIDE 5 MG TAB PO SCH ×2 (08:57→15:56)
[2017-12-27] MEDS: Aspirin 325 mg Enteric Coated Tablet PO SCH (08:57)
[2017-12-27] MEDS: guaiFENesin ER 600 MG TAB PO SCH ×2 (08:58→21:09)
[2017-12-27] MEDS: Enoxaparin Sodium 40 MG/0.4 ML SYRINGE SC SCH (08:58)
[2017-12-27] MEDS: Benzonatate 100 MG CAP PO SCH ×3 (09:04→21:12)
[2017-12-27] MEDS: HumaLOG 300 UNITS/3 ML VIAL SC PRN ×2 (13:00→17:50)
--- NOTE | 2017-12-27 15:09 | PDOC.PN ---
- Subjective Encounter Start Date: 12/27/17 Encounter Start Time: 15:07 Subjective: feels Ok. still very weak and easily tired -: poor appetite - Objective Resuscitation Status: Resuscitation Status FULL:Full Resuscitation MAR Reviewed: Yes Vital Signs & Weight: Vital Signs (12 hours) Temp Pulse Resp BP Pulse Ox 12/27/17 14:13 98.6 F 12/27/17 12:11 83 16 94 L 12/27/17 12:00 100.0 F H 88 20 124/84 92 L 12/27/17 08:00 98.0 F 98 12/27/17 07:04 89 20 Weight Weight 155 lb 5 oz Most Recent Monitor Data Heart Rate from ECG 98 NIBP 131/67 NIBP BP-Mean 108 Respiration from ECG 16 SpO2 95 I&O: 12/26/17 12/27/17 12/28/17 06:59 06:59 06:59 Intake Total 1120 300 240 Output Total 460 1500 50 Balance 660 -1200 190 Result Diagrams: 12/26/17 04:55 12/27/17 04:32 Additional Labs: Accuchecks 12/27/17 12/27/17 12/26/17 11:24 06:17 22:58 POC Glucose 182 H 75 133 H Phys Exam - Physical Examination Constitutional: NAD sitting up in chair but looks weak HEENT: PERRLA, moist MMs, sclera anicteric, oral pharynx no lesions Neck: no nodes, no JVD, supple, full ROM surgical site clean Respiratory: no wheezing, no rales, no rhonchi, wheezing present, clear to auscultation bilateral Cardiovascular: RRR, no significant murmur, no rub Gastrointestinal: soft, non-tender, no distention, positive bowel sounds Musculoskeletal: no edema, pulses present Neurological: non-focal, normal sensation, moves all 4 limbs Psychiatric: normal affect, A&O x 3 Skin: no rash Dx/Plan (1) Acute CVA (cerebrovascular accident) Code(s): I63.9 - CEREBRAL INFARCTION, UNSPECIFIED Status: Acute Comment: with left hemiparesis, embolic cva in right cerebral hemisphere (2) Acute exacerbation of CHF (congestive heart failure) Code(s): I50.9 - HEART FAILURE, UNSPECIFIED Status: Acute Qualifiers: Heart failure type: diastolic Qualified Code(s): I50.33 - Acute on chronic diastolic (congestive) heart failure (3) COPD exacerbation Code(s): J44.1 - CHRONIC OBSTRUCTIVE PULMONARY DISEASE W (ACUTE) EXACERBATION Status: Acute Comment: resolving (4) DM type 2 (diabetes mellitus, type 2) Status: Acute Qualifiers: Diabetes mellitus senior care insulin use: without senior care use Diabetes mellitus complication status: with unspecified complications Qualified Code(s) : E11.8 - Type 2 diabetes mellitus with unspecified complications Comment: new onset (5) Physical deconditioning Code(s): R53.81 - OTHER MALAISE Status: Acute (6) Sepsis Code(s): A41.9 - SEPSIS, UNSPECIFIED ORGANISM Status: Acute Qualifiers: Sepsis type: sepsis due to unspecified organism Qualified Code(s): A41.9 - Sepsis, unspecified organism (7) right carotid stenosis Status: Acute - Plan plan discussed w/ family, PT/OT, respiratory therapy, incentive spirometry, out of bed/ambulate, DVT proph w/SCDs Rehab eval. care discussed w son at bedside. 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 am labs * . Review of Systems - Review of Systems Constitutional: weakness, malaise. negative: fever, chills, sweats, other Eyes: negative: Pain, Vision Change, Conjunctivae Inflammation, Eyelid Inflammation, Redness, Other ENT: negative: Ear Pain, Ear Discharge, Nose Pain, Nose Discharge, Nose Congestion, Mouth Pain, Mouth Swelling, Throat Pain, Throat Swelling, Other Respiratory: negative: Cough, Dry, Shortness of Breath, Hemoptysis, SOB with Excertion, Pleuritic Pain, Sputum, Wheezing Cardiovascular: negative: chest pain, palpitations, orthopnea, paroxysmal nocturnal dyspnea, edema, light headedness, other Gastrointestinal: negative: Nausea, Vomiting, Abdominal Pain, Diarrhea, Constipation, Melena, Hematochezia, Other Genitourinary: negative: Dysuria, Frequency, Incontinence, Hematuria, Retention , Other Musculoskeletal: negative: Neck Pain, Shoulder Pain, Arm Pain, Back Pain, Hand Pain, Leg Pain, Foot Pain, Other Skin: negative: Rash, Lesions, Mark, Bruising, Other Neurological: Weakness - Medications/Allergies Allergies/Adverse Reactions: Allergies Allergy/AdvReac Type Severity Reaction Status Date / Time No Known Allergies Allergy Unverified 12/23/17 15:06 Medications: Current Medications Acetaminophen (Tylenol) 650 mg PO Q4H PRN PRN Reason: Fever > 101 or headache Hydrocodone Bitart/Acetaminophen ([place] 5/325) 1 tab PO Q4H PRN PRN Reason: Mild Pain (1-3) Albuterol/Ipratropium (Duoneb) 3 ml NEB [id number] [facility] Last Admin: 12/27/17 12:11 Dose: 3 ml Albuterol/Ipratropium (Duoneb) 3 ml NEB [id number] PRN PRN Reason: SHORTNESS OF BREATH Aspirin (Ecotrin) 325 mg PO QAM [facility] Last Admin: 12/27/17 08:57 Dose: 325 mg Atorvastatin Calcium (Lipitor) 40 mg PO HS [facility] Last Admin: 12/26/17 22:48 Dose: 40 mg Benzonatate (Tessalon) 100 mg PO TID [facility] Last Admin: 12/27/17 09:04 Dose: 100 mg Cefdinir (Omnicef) 300 mg PO BID [facility] Last Admin: 12/27/17 08:57 Dose: 300 mg Dextrose/Water (Dextrose 50%) 25 gm SLOW IVP PRN PRN PRN Reason: Hypoglycemia Enoxaparin Sodium (Lovenox) 40 mg SC 0900 [facility] Last Admin: 12/27/17 08:58 Dose: 40 mg Glipizide (Glucotrol) 5 mg PO BID-AC [facility] Last Admin: 12/27/17 08:57 Dose: 5 mg Glucagon (Glucagon) 1 mg IM PRN PRN PRN Reason: Hypoglycemia Guaifenesin (Mucinex) 600 mg PO Q12HR [facility] Last Admin: 12/27/17 08:58 Dose: 600 mg Guaifenesin/Dextromethorphan (Robitussin Dm) 15 ml PO Q4H PRN PRN Reason: Cough Dextrose/Water (D5w) 1,000 mls @ 0 mls/hr IV .Q0M PRN PRN Reason: Hypoglycemia Insulin Human Lispro (Humalog) 0 units SC .MODERATE SLIDING SC PRN PRN Reason: Moderate Correctional Scale Last Admin: 12/27/17 13:00 Dose: 2 unit Insulin Human Lispro (Humalog) 0 units SC .BEDTIME SLIDING SC PRN PRN Reason: Bedtime Correctional Scale Last Admin: 12/23/17 23:00 Dose: 3 unit Lidocaine (Lidoderm 5% Patch) 1 patch TD 1200 PRN PRN Reason: BACK PAIN Last Admin: 12/25/17 12:37 Dose: 1 patch Miscellaneous Medication (Lidocaine Patch Removal) 1 each TOP 2359 [facility] Last Admin: 12/26/17 22:50 Dose: 1 each Ondansetron HCl (Zofran) 4 mg IVP Q6H PRN PRN Reason: Nausea/Vomiting Sodium Chloride (Flush - Normal Saline) 10 ml IVF PRN PRN PRN Reason: Saline Flush Last Admin: 12/24/17 18:00 Dose: 10 ml
[2017-12-27] MEDS: Atorvastatin Calcium 40 MG TAB PO SCH (21:09)
[2017-12-28] MEDS: Lidocaine Patch Removal 1 EACH TOP SCH (00:18)
[2017-12-28 05:16] LABS: Anion Gap 13 mmol/L (10-20); BUN (Urea Nitrogen) 4 mg/dL (8.4-25.7); Calc. Creatinine Clearance 85 mL/min (70-130); Calcium 8.8 mg/dL (7.8-10.44); Carbon Dioxide 21 mmol/L (23-31); Chloride 102 mmol/L (98-107); Estimated GFR-MDRD Greater than 90; Glucose 219 mg/dL (83-110); Potassium 3.5 mmol/L (3.5-5.1); Sodium 132 mmol/L (136-145)
[2017-12-28] MEDS: HumaLOG 300 UNITS/3 ML VIAL SC PRN ×2 (06:04→12:02)
[2017-12-28] MEDS: Cefdinir 300 MG CAP PO SCH (08:31)
[2017-12-28] MEDS: Aspirin 325 mg Enteric Coated Tablet PO SCH (08:31)
[2017-12-28] MEDS: guaiFENesin ER 600 MG TAB PO SCH (08:31)
[2017-12-28] MEDS: glipiZIDE 5 MG TAB PO SCH ×2 (08:31→16:08)
[2017-12-28] MEDS: Enoxaparin Sodium 40 MG/0.4 ML SYRINGE SC SCH (08:34)
[2017-12-28] MEDS ORDERED: Clopidogrel Bisulfate 75 MG TAB PO SCH (09:00)
[2017-12-28] MEDS: Benzonatate 100 MG CAP PO SCH ×2 (10:03→16:08)
--- NOTE | 2017-12-28 13:11 | PDOC.PN ---
- Subjective Encounter Start Date: 12/28/17 Encounter Start Time: 13:10 Subjective: feels much better. appetite improved -: c/o right hip and back pain since fall - Objective Resuscitation Status: Resuscitation Status FULL:Full Resuscitation MAR Reviewed: Yes Vital Signs & Weight: Vital Signs (12 hours) Temp Pulse Resp BP Pulse Ox 12/28/17 13:08 90 18 96 12/28/17 11:41 99.5 F 88 16 166/77 H 95 12/28/17 08:39 94 L 12/28/17 07:40 98.1 F 94 16 150/75 H 94 L 12/28/17 07:12 89 16 93 L 12/28/17 04:00 97.7 F 83 19 160/73 H 97 Weight Weight 155 lb 5 oz Most Recent Monitor Data Heart Rate from ECG 98 NIBP 131/67 NIBP BP-Mean 108 Respiration from ECG 16 SpO2 95 I&O: 12/27/17 12/28/17 12/29/17 06:59 06:59 06:59 Intake Total 300 850 Output Total 1500 50 Balance -1200 800 Result Diagrams: 12/26/17 04:55 12/28/17 04:13 Additional Labs: Accuchecks 12/28/17 12/28/17 12/27/17 10:50 05:52 23:46 POC Glucose 267 H 200 H 196 H 12/27/17 12/27/17 20:07 16:55 POC Glucose 76 232 H Microbiology 12/23/17 16:14 Nasopharyngeal swab Nose/Throat Culture - Final 12/23/17 05:17 Sputum Respiratory Culture - Final 12/23/17 04:55 Urine clean catch Urine Culture - Final 12/23/17 13:41 Venous blood - Left Hand Blood Culture - Preliminary NO GROWTH AT 48 HOURS 12/23/17 13:31 Venous blood - Left Arm Blood Culture - Preliminary NO GROWTH AT 48 HOURS Phys Exam - Physical Examination Constitutional: NAD HEENT: PERRLA, moist MMs, sclera anicteric, oral pharynx no lesions Neck: no nodes, no JVD, supple, full ROM Respiratory: no wheezing, no rales, no rhonchi, clear to auscultation bilateral Cardiovascular: RRR, no significant murmur, no rub Gastrointestinal: soft, non-tender, no distention, positive bowel sounds Musculoskeletal: no edema, pulses present Neurological: non-focal, normal sensation, moves all 4 limbs Psychiatric: normal affect, A&O x 3 Skin: no rash Dx/Plan (1) Acute CVA (cerebrovascular accident) Code(s): I63.9 - CEREBRAL INFARCTION, UNSPECIFIED Status: Acute Comment: with left hemiparesis, embolic cva in right cerebral hemisphere (2) Acute exacerbation of CHF (congestive heart failure) Code(s): I50.9 - HEART FAILURE, UNSPECIFIED Status: Resolved Qualifiers: Heart failure type: diastolic Qualified Code(s): I50.33 - Acute on chronic diastolic (congestive) heart failure (3) COPD exacerbation Code(s): J44.1 - CHRONIC OBSTRUCTIVE PULMONARY DISEASE W (ACUTE) EXACERBATION Status: Resolved Comment: resolving (4) DM type 2 (diabetes mellitus, type 2) Status: Acute Qualifiers: Diabetes mellitus half-way insulin use: without metal filer use Diabetes mellitus complication status: with unspecified complications Qualified Code(s) : E11.8 - Type 2 diabetes mellitus with unspecified complications Comment: new onset (5) Physical deconditioning Code(s): R53.81 - OTHER MALAISE Status: Acute (6) Sepsis Code(s): A41.9 - SEPSIS, UNSPECIFIED ORGANISM Status: Acute Qualifiers: Sepsis type: sepsis due to unspecified organism Qualified Code(s): A41.9 - Sepsis, unspecified organism (7) right carotid stenosis Status: Acute Comment: s/p R CEA 12/26.Started on Plavix - Plan plan discussed w/ family, PT/OT, respiratory therapy, incentive spirometry, out of bed/ambulate, DVT proph w/SCDs Start plavix.cont ASA,statin. -: awaiting rehab placement.Hemodynamically stable -: check hip and pelvic Xray .no evidence of hematoma/fracture on exam -: BP running high. add low dose BB & JOSE-I given mild montanez CHF * . Review of Systems - Review of Systems Constitutional: negative: fever, chills, sweats, weakness, malaise, other ENT: negative: Ear Pain, Ear Discharge, Nose Pain, Nose Discharge, Nose Congestion, Mouth Pain, Mouth Swelling, Throat Pain, Throat Swelling, Other Respiratory: negative: Cough, Dry, Shortness of Breath, Hemoptysis, SOB with Excertion, Pleuritic Pain, Sputum, Wheezing Cardiovascular: negative: chest pain, palpitations, orthopnea, paroxysmal nocturnal dyspnea, edema, light headedness, other Gastrointestinal: negative: Nausea, Vomiting, Abdominal Pain, Diarrhea, Constipation, Melena, Hematochezia, Other Genitourinary: negative: Dysuria, Frequency, Incontinence, Hematuria, Retention , Other Musculoskeletal: negative: Neck Pain, Shoulder Pain, Arm Pain, Back Pain, Hand Pain, Leg Pain, Foot Pain, Other Neurological: negative: Weakness, Numbness, Incoordination, Change in Speech, Confusion, Seizures, Other - Medications/Allergies Allergies/Adverse Reactions: Allergies Allergy/AdvReac Type Severity Reaction Status Date / Time No Known Allergies Allergy Unverified 12/23/17 15:06 Medications: Current Medications Acetaminophen (Tylenol) 650 mg PO Q4H PRN PRN Reason: Fever > 101 or headache Last Admin: 12/27/17 15:58 Dose: 650 mg Hydrocodone Bitart/Acetaminophen ([place] 5/325) 1 tab PO Q4H PRN PRN Reason: Mild Pain (1-3) Albuterol/Ipratropium (Duoneb) 3 ml NEB [id number] [facility] Last Admin: 12/28/17 13:08 Dose: 3 ml Albuterol/Ipratropium (Duoneb) 3 ml NEB [id number] PRN PRN Reason: SHORTNESS OF BREATH Aspirin (Ecotrin) 325 mg PO QAM [facility] Last Admin: 12/28/17 08:31 Dose: 325 mg Atorvastatin Calcium (Lipitor) 40 mg PO HS [facility] Last Admin: 12/27/17 21:09 Dose: 40 mg Benzonatate (Tessalon) 100 mg PO TID [facility] Last Admin: 12/28/17 10:03 Dose: 100 mg Cefdinir (Omnicef) 300 mg PO BID [facility] Last Admin: 12/28/17 08:31 Dose: 300 mg Clopidogrel Bisulfate (Plavix) 75 mg PO DAILY [facility] Last Admin: 12/28/17 10:03 Dose: 75 mg Dextrose/Water (Dextrose 50%) 25 gm SLOW IVP PRN PRN PRN Reason: Hypoglycemia Enoxaparin Sodium (Lovenox) 40 mg SC 0900 [facility] Last Admin: 12/28/17 08:34 Dose: 40 mg Glipizide (Glucotrol) 5 mg PO BID-AC [facility] Last Admin: 12/28/17 08:31 Dose: 5 mg Glucagon (Glucagon) 1 mg IM PRN PRN PRN Reason: Hypoglycemia Guaifenesin (Mucinex) 600 mg PO Q12HR [facility] Last Admin: 12/28/17 08:31 Dose: 600 mg Guaifenesin/Dextromethorphan (Robitussin Dm) 15 ml PO Q4H PRN PRN Reason: Cough Dextrose/Water (D5w) 1,000 mls @ 0 mls/hr IV .Q0M PRN PRN Reason: Hypoglycemia Insulin Human Lispro (Humalog) 0 units SC .MODERATE SLIDING SC PRN PRN Reason: Moderate Correctional Scale Last Admin: 12/28/17 12:02 Dose: 6 unit Insulin Human Lispro (Humalog) 0 units SC .BEDTIME SLIDING SC PRN PRN Reason: Bedtime Correctional Scale Last Admin: 12/23/17 23:00 Dose: 3 unit Lidocaine (Lidoderm 5% Patch) 1 patch TD 1200 PRN PRN Reason: BACK PAIN Last Admin: 12/25/17 12:37 Dose: 1 patch Miscellaneous Medication (Lidocaine Patch Removal) 1 each TOP 2359 [facility] Last Admin: 12/28/17 00:18 Dose: Not Given Ondansetron HCl (Zofran) 4 mg IVP Q6H PRN PRN Reason: Nausea/Vomiting Sodium Chloride (Flush - Normal Saline) 10 ml IVF PRN PRN PRN Reason: Saline Flush Last Admin: 12/24/17 18:00 Dose: 10 ml
--- NOTE | 2017-12-28 14:44 | RAD ---
RIGHT HIP 2 VIEWS: Date: 12/28/17 HISTORY: Fall with hip pain. FINDINGS: There are mild arthritic changes of the hip joint. No signs of fracture or dislocation. IMPRESSION: No evidence of fracture. POS: [facility]
--- NOTE | 2017-12-28 14:44 | RAD ---
AP PELVIS: Date: 12/28/17 HISTORY: Fall with pelvic and right hip pain. FINDINGS: Arthritic changes of the lower lumbar spine and both hips are noted. Pelvic ring is intact without ev idence of fracture. IMPRESSION: No evidence of fracture. POS: GREYSON
[2017-12-28 16:10] VITALS: BP 139/75; TEMP 98
--- NOTE | 2017-12-28 16:51 | PQF ---
CLINICAL DOCUMENTATION IMPROVEMENT CLARIFICATION FORM: ICD-10 Updated PLEASE DO AN ADDENDUM TO THE PROGRESS NOTE WITH ANY DOCUMENTATION UPDATES OR ADDITIONS AND CARRY THROUGH TO DC SUMMARY. THANK YOU. DATE: 12/28/17 ATTN: Dr. Das Please exercise your independent, professional judgment in responding to the clarification form. Clinical indicators are provided on the bottom of this form for your review Diagnosis: _ SEPSIS Present on Admission (POA): [X ] Yes [ ] No [ ] Unable to determine Coding guidelines require hospitals to identify whether a diagnosis was present on admission (POA) or not. To accurately assign the appropriate POA indicator, this information must be clearly documented within the medical record. CLINICAL INDICATORS - SIGNS / SYMPTOMS / LABS ER RECORD: BP 185/91, PULSE 108, RESP 20 TEMP: 99.0 H&P: WHITE COUNT 13 PN 12/24-12/28: SEPSIS, UNSPECIFIED ORGANISM. ACUTE RISKS: H&P 12/23: L HEMIPARESIS WITH LIKELY ACUTE CVA. PT APPEARS TO HAVE ACUTE COPD EXACERBATION WITH UNDERLYING PNEUMONIA SUSPECTED AND WHITE COUNT OF 13 WITH LEFT SHIFT. TREATMENT: CPOE 12/23 TO 12/25: IV LEVAQUIN CPOE 12/25: OMNICEF 300MG PO BID Thank you, Malia (This form is maintained as a part of the permanent medical record) 2014 [email or web address], [place]. All Rights Reserved aMlia Zelaya RN, BSN [email or web address] Office: [phone] [facility]
[2017-12-28] MEDS ORDERED: Lisinopril 2.5 MG TAB PO SCH (21:00)
--- NOTE | 2017-12-30 00:18 | DIS ---
DATE OF ADMISSION: 12/23/2017 DATE OF DISCHARGE: 12/28/2017 CONDITION AT THE TIME OF DISCHARGE: Stable and improved. DISCHARGE DISPOSITION: Inpatient rehabilitation to [facility]. DISCHARGE DIAGNOSES: 1. 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 2. Acute on chronic diastolic congestive heart failure. 3. Acute chronic obstructive pulmonary disease. 4. Diabetes mellitus type 2. 5. Physical deconditioning. 6. Sepsis. 7. Right carotid artery stenosis, status post right carotid artery endarterectomy. DISCHARGE MEDICATIONS: Glipizide 5 mg p.o. b.i.d., Toprol-XL 25 mg daily, lisinopril 2.5 mg daily, l idocaine patch 1 daily, DuoNebs p.r.n., insulin sliding scale, [place] p.r.n., Plavix 75 mg daily, Mora himanshu Perles p.r.n., Lipitor 40 mg daily, aspirin 325 mg daily, Tylenol p.r.n., Mucinex p.r.n., INHOUSE CONSULTATIONS: 1. Neurology, Dr. Aisha Prescott. 2. Cardiovascular Surgery, Dr. Dejesus. PROCEDURES DONE IN THE HOSPITAL: 1. MRI of the brain on presentation 12/24/2017 which shows large parietal area of acute infarction a s well as numerous tiny foci of acute vascular insult scattered throughout the right cerebral hemisph ere with the appearance of recent shivering phenomenon involving all three major branches of the righ t cerebral artery. 2. CT angio of the neck and head which is very high grade stenosis in the right internal carotid art key and moderate to high grade stenosis of the left internal carotid artery. 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 3. Transthoracic echocardiogram, which shows EF of 50% to 55%, normal sized left atrium and left evangelist tricle with diastolic dysfunction. No thrombus in the cardiac chambers. 4. Right-sided carotid endarterectomy by Dr. Dejesus on 12/26/2017 with bovine patch angioplasty. 5. X-ray of the right hip and pelvis, which is negative for any fractures. HISTORY OF PRESENT ILLNESS: Mr. Jensen is a 72-year-old male with past medical history only of GERD who presented to the emergency room groggy and minimally responsive. The history was that he fell do wn 2 weeks prior to presentation and has been feeling sick with sore throat, etc. He has fallen mult iple times according to the family who brought him here. He was noted to have a left-sided facial dr roselia and a CT scan done in the emergency room showed right parietal lobe infarct. He was admitted to stroke unit with a diagnosis of acute left hemiparesis on examination with acute right-sided CVA. MR I was ordered. Aspirin and Lipitor was ordered and Neurology was consulted. He was also found to be having acute COPD exacerbation with possibility of underlying pneumonia and sepsis with WBC count of 13 with left shift and moderate dehydration. His IV fluids, IV antibiotics were also started. Echo cardiogram will also be ruled out as his BNP was elevated on presentation as well. Chest x-ray also showed pulmonary vascular congestion as well as possible infiltrate. Please see admission history an d physical for further details. HOSPITAL COURSE: The patient underwent an MRI which confirmed the finding of large acute infarction as well as possibility of embolic phenomena on the right hemispheric area. Neurology, Dr. Prescott saw the patient and recommended getting a CT angio of his head and neck. This was done showing very hig h-grade stenosis in the right carotid artery and moderate to severe stenosis in the left carotid jennifer ry. Cardiovascular Surgery was consulted and Dr. Dejesus saw the patient and the patient underwent suc cessful right carotid endarterectomy. He was started on aspirin and Plavix after finding of the stro ke and Plavix was added after this finding. His echocardiogram showed mild pulmonary vascular conges tion. He was diuresed for acute on chronic diastolic congestive heart failure and was tapered off of his an tibiotics for his pneumonia and sepsis. By the time of discharge, he is hemodynamically stable and ready for rehabilitation. He was accepted for inpatient rehabilitation and was discharged to the same. He did undergo an x-ray of the right hip and pelvis for complaints of some pain due to multiple falls which was negative for any fracture. He was seen and examined prior to discharge. Please see hospitalist progress note from the date of d ischarge for further detail including with the [id number] interaction. Discharge plan was discusse d with the patient. The patient's son and two daughters present in the room and they verbalized unde rstanding. Medications were reconsulted. Time spent in the discharge 35 minutes.
== END 2017-12-28 19:34 | DRG 853 ==
LOC: ERS 04:42 → ERHOLD 06:54 → OBSVTOIN 13:15 → 2SE 14:30 → CCU 12-26 12:01 → 2SE 12-27 09:37
PROVIDERS: ADMIT Internal Medicine; ATTEND Internal Medicine
PROC: 03CH0ZZ Extirpation of Matter from Right Common Carotid Artery, Open Approach (ICD-10-PCS; principal; 2017-12-26)
PROC: 03CM0ZZ Extirpation of Matter from Right External Carotid Artery, Open Approach (ICD-10-PCS; 2017-12-26)
PROC: 03CK0ZZ Extirpation of Matter from Right Internal Carotid Artery, Open Approach (ICD-10-PCS; 2017-12-26)
PROC: 03UH0KZ Supplement Right Common Carotid Artery with Nonautologous Tissue Substitute, Open Approach (ICD-10-PCS; 2017-12-26)
PROC: 03UK0KZ Supplement Right Internal Carotid Artery with Nonautologous Tissue Substitute, Open Approach (ICD-10-PCS; 2017-12-26)
PROC: 03UM0KZ Supplement Right External Carotid Artery with Nonautologous Tissue Substitute, Open Approach (ICD-10-PCS; 2017-12-26)
DX: A41.9 Sepsis, unspecified organism (principal); I63.40 Cerebral infarction due to embolism of unspecified cerebral artery; I50.33 Acute on chronic diastolic (congestive) heart failure; J18.9 Pneumonia, unspecified organism; G81.94 Hemiplegia, unspecified affecting left nondominant side; J44.1 Chronic obstructive pulmonary disease with (acute) exacerbation; G93.40 Encephalopathy, unspecified; J44.0 Chronic obstructive pulmonary disease with (acute) lower respiratory infection; R29.810 Facial weakness; I11.0 Hypertensive heart disease with heart failure; E11.65 Type 2 diabetes mellitus with hyperglycemia; Z79.84 Long term (current) use of oral hypoglycemic drugs; Z79.82 Long term (current) use of aspirin; Z79.02 Long term (current) use of antithrombotics/antiplatelets; E86.0 Dehydration; Z91.81 History of falling; Z87.891 Personal history of nicotine dependence; I65.23 Occlusion and stenosis of bilateral carotid arteries; K21.9 Gastro-esophageal reflux disease without esophagitis; I67.1 Cerebral aneurysm, nonruptured; E78.00 Pure hypercholesterolemia, unspecified
CPT/HCPCS: 36415; 36416; 70450; 70496; 70498; 70553; 71045; 72170; 80048; 80053; 80061; 80074; 80306; 80307; 81003; 81015; 82043; 82553; 83036; 84439; 84443; 84481; 84484; 85025; 85610; 85730; 86038; 86225; 86780; 87040; 87070; 87086; 87205; 87389; 87522; 89220; 93005; 93010; 93306; 94640; 96360; 96361; C1769; G8978-GP-CJ; G8978-GP-CL; G8979-GP-CI; G8979-GP-CK; G8987-GO-CJ; G8988-GO-CI; G8996-GN-CI; G8997-GN-CH; J0692; J1642; J1644; J1650; J1956; J2001; J2405; J2704; J2720; J2920; J3010; J7050; J7620